=== PATIENT | female | born 1975 | race Two or more races ===

== ENCOUNTER 2024-12-16 10:29 | Emergency (ER) | payer MEDICAID ==
[~2024-12-16] VITALS: Ht 172.7 cm; Wt 54.4 kg
[2024-12-16 10:55] VITALS: BP 122/84; TEMP 98.8; O2SAT 98
[2024-12-16] MEDS ORDERED: CARB15DR12 EACH EAR (11:15)
== END 2024-12-16 11:25 | disposition home or self-care (01) ==
LOC: ER 10:35
DX: H92.01 Otalgia, right ear (principal)